=== PATIENT | female | born 1980 | race Caucasian/White ===

== ENCOUNTER 2021-12-27 08:13 | Emergency (ER) | payer OTHER, SELFPAY ==
[2021-12-27 08:21] VITALS: BP 115/76; PULSE 86; RESP 20; TEMP 37.1; O2SAT 100
--- NOTE | 2021-12-27 08:25 | ED.SKABFB ---
HPI - Skin/Abscess/Foreign Bdy General Chief complaint: Extremity Injury, Upper Stated complaint: left 1st digit finger Time Seen by Provider: 12/27/21 08:25 Source: patient and RN notes reviewed Mode of arrival: ambulatory Limitations: no limitations History of Present Illness HPI narrative: 41-year-old female presents to the [facility] with left second distal finger infection. Redness swelling and pus pocket noted. Patient has not recently got her nails done, is not a nail biter. Patient states approximately 4- 5 days ago she was doing the dishes and thinks that she might of gotten poked in that area, since has developed infection to the area. No treatment prior to arrival. MD complaint: abscess/boil Related Data Home Medications Medication Instructions Recorded Confirmed norethindrone-e.estradiol-iron [Lo 1 tablet PO DAILY 12/27/21 12/27/21 Loestrin Fe] Allergies Allergy/AdvReac Type Severity Reaction Status Date / Time No Known Allergies Allergy Unverified 03/21/18 10:24 Review of Systems Review of Systems: All systems reviewed & are unremarkable except as noted in HPI and below Constitutional: Constitutional: Reports no additional constitutional complaints, Denies chills and Denies fever(s) Eyes: Eyes: Reports no additional eye complaints ENT: Reports system reviewed and no additional complaints, except as documented Cardiovascular: Cardiovascular: Reports no additional cardiovascular complaints, Denies chest pain and Denies dyspnea Respiratory: Respiratory: Reports no additional respiratory complaints, Denies cough and Denies dyspnea Gastrointestinal: Gastrointestinal: Reports no additional gastrointestinal complaints, Denies abdominal pain, Denies nausea and Denies vomiting Musculoskeletal: Musculoskeletal: Reports no additional musculoskeletal complaints Integumentary/Breasts: Skin/Breast: Reports as per HPI and Reports erythema (Distal second finger left hand) Neurologic: Reports system reviewed and no additional complaints, except as documented Psychiatric: Psychiatric: Reports no additional psychiatric complaints Allergic/Immunologic: Allergic/Immunologic: Reports no additional allergic/immunologic complaints PMF Past Medical History Medical History (Updated 12/27/21 @ 16:53 by Sirena Galindo APRN) No significant medical problems Surgical History Surgical History (Updated 12/27/21 @ 16:53 by Sirena Galindo APRN) No history of previous surgery Social History Social History (Updated 12/27/21 @ 16:54 by Sirena Galindo APRN) Living arrangements: with family Gender identity (if verbalized by the patient): Female Comments At the time of my signature, I reviewed and agree with the nursing past medical, surgical, social, and family history. There is no relevant family history pertinent to the patient complaint. Exam Const: General: cooperative, healthy appearing, no acute distress, well developed, alert and awake Nutritional Appearance: well nourished Orientation/consciousness: patient oriented x3 Limitations: no limitations HENMT: Head: normal to inspection and No palpable skull fracture present Ears: hearing grossly normal bilaterally, external ears normal, TM's normal bilaterally and EAC's normal Eyes: Pupils: Equal, round and reactive pupils present Neck: Neck: normal visual inspection, no lymphadenopathy and no meningeal signs Chest: Chest palpation & inspection: normal inspection of the chest Resp: Effort & Inspection: normal respiratory effort and no use of accessory muscles Auscultation: clear to auscultation bilaterally, no crackles, no rales, no rhonchi and no wheezes Cardio: Rate: regular rate Rhythm: regular rhythm Skin: Wounds: wounds noted Other: Abscess right in the nailbed second left finger Neuro: General: patient oriented x3, gait normal, moves all extremities, no meningeal signs and no focal motor deficits Cranial nerves: Yes Equal, round and
== END 2021-12-27 08:42 | disposition home or self-care (01) ==
PROVIDERS: Emergency Provider Nurse Practitioner
DX: L03.012 Cellulitis of left finger (principal); Z85.820 Personal history of malignant melanoma of skin
CPT/HCPCS: 10060; 87070; 87147; 87181; 87186; 87205; 99203; G0463

== ENCOUNTER 2022-02-24 11:29 | Emergency (ER) | payer OTHER, SELFPAY ==
--- NOTE | 2022-02-24 11:33 | ED.URI ---
HPI - URI/Sore Throat General Chief Complaint: Upper Respiratory Infection Stated Complaint: sore throat cough congestion Time Seen by Provider: 02/24/22 11:33 Source: patient and RN notes reviewed History of Present Illness HPI Narrative: Patient is a 41-year-old female who presents the urgent care with request for a rapid COVID test and strep test. Patient states that she has had a sore throat, cough and light congestion since Thursday afternoon. Patient denies of any exposures to strep or COVID. States that no one else in the home has been ill. Patient denies of any fevers, nausea or vomiting. Patient has been taking DayQuil with mild improvement. No obvious fatigue noted. No other acute complaints. Patient aware plan of care. Some parts of this dictation were generated by voice recognition software and may contain typographical and/or grammatical inaccuracies. Related Data Home Medications Medication Instructions Recorded Confirmed norethindrone-e.estradiol-iron [Lo 1 tablet PO DAILY 12/27/21 12/27/21 Loestrin Fe] Allergies Allergy/AdvReac Type Severity Reaction Status Date / Time No Known Allergies Allergy Verified 02/24/22 11:41 Review of Systems Review of Systems: CONSTITUTIONAL: Denies fever, chills, or sweats. EYES: Denies visual changes, redness, or discharge. ENT: Reports of sore throat, sinus congestion CARDIOVASCULAR: Denies chest pain, palpitations, or edema. RESPIRATORY: Reports a mild cough without dyspnea GASTROINTESTINAL: Denies abdominal pain, nausea, vomiting, or diarrhea. GENITOURINARY: Denies dysuria or hematuria. SKIN: Denies rash or itching. MUSCULOSKELETAL: Denies back pain, joint pain, or myalgia. NEUROLOGIC: Denies headache, numbness, or weakness. All other systems reviewed are negative, except as documented in HPI. [facility] Past Medical History Medical History (Updated 02/24/22 @ 12:06 by EARL Carolina) No significant medical problems Surgical History Surgical History (Updated 12/27/21 @ 16:53 by Sirena Galindo APRN) No history of previous surgery Social History Social History (Updated 12/27/21 @ 16:54 by Sirena Galindo APRN) Gender identity (if verbalized by the patient): Female Comments At the time of my signature, I reviewed and agree with the nursing past medical, surgical, social, and family history. There is no relevant family history pertinent to the patient complaint. Exam Narrative: GENERAL: This is a well-nourished, well-developed patient, in no apparent distress. HEAD: normocephalic, atraumatic. EYES: PERRL. Sclera clear/white. Vision is grossly intact. EARS: External ears normal, auditory canals clear and without drainage, TMs normal without perforation. Hearing grossly intact. NOSE: External nose normal with no obvious nasal discharge, nares without redness, clear rhinorrhea. THROAT: Mucous membranes moist, posterior pharynx clear. Mild postnasal drainage without exudate or ulceration NECK: Neck supple, non-tender without lymphadenopathy CARDIOVASCULAR: Regular rate and rhythm without murmurs, gallops, or rubs. RESPIRATORY: Clear to auscultation. Breath sounds equal bilaterally. No wheezes, rales, or rhonchi. SKIN: warm, intact with no suspicious lesions or rash, good texture and turgor. NEURO: awake, alert, and oriented to person, place and time. There were no obvious focal neurologic abnormalities. EXTREMITIES: No clubbing, cyanosis, or edema. Course Course Level of Care: Express Care Visit Vital Signs Vital signs: Vital Signs Temperature 98.6 F 02/24/22 11:38 Pulse Rate 99 02/24/22 11:38 Respiratory Rate 14 02/24/22 11:38 Blood Pressure 122/80 02/24/22 11:38 Pulse Oximetry 98 02/24/22 11:38 Temperature 98.6 F 02/24/22 11:38 Pulse Rate 99 02/24/22 11:38 Respiratory Rate 14 02/24/22 11:38 Blood Pressure 122/80 02/24/22 11:38 Pulse Oximetry 98 02/24/22 11:38 Reviewed MDM - URI/Sore Throat
[2022-02-24 11:38] VITALS: BP 122/80; PULSE 99; RESP 14; TEMP 37; O2SAT 98
[2022-02-24 20:49] LABS: SARS-CoV-2 RNA PCR Negative
== END 2022-02-24 12:15 | disposition home or self-care (01) ==
PROVIDERS: Emergency Provider Nurse Practitioner Family; PCP Internal Medicine
DX: J06.9 Acute upper respiratory infection, unspecified (principal); Z20.822 Contact with and (suspected) exposure to COVID-19
CPT/HCPCS: 87081; 87880; 99213; C9803; G0463; U0003; U0005

== ENCOUNTER 2022-03-27 10:50 | Emergency (ER) | payer OTHER, SELFPAY ==
[2022-03-27 10:57] VITALS: BP 108/77; PULSE 82; RESP 18; TEMP 37.2; O2SAT 100
--- NOTE | 2022-03-27 11:10 | ED.URI ---
HPI - URI/Sore Throat General Chief Complaint: Upper Respiratory Infection Stated Complaint: infection in nose Time Seen by Provider: 03/27/22 11:00 Source: patient Mode of arrival: ambulatory Limitations: no limitations History of Present Illness HPI Narrative: Ms. Nj is a 41-year-old female patient presenting to the clinic today with complaints of a sore possibly infected in her left nare. She reports that its been sore for approximately 1 week. She denies any fever or chills. MD elicited complaint: sore throat and nasal congestion Related Data Home Medications Medication Instructions Recorded Confirmed norethindrone 1 mg-ethinyl 1 tablet PO DAILY 12/27/21 03/27/22 estradiol 10 mcg (24)-iron 10 mcg(2) tablet (Lo Loestrin Fe) Allergies Allergy/AdvReac Type Severity Reaction Status Date / Time No Known Allergies Allergy Verified 03/27/22 11:01 Review of Systems Review of Systems: Pertinent positives per HPI. Patient denies any fever, chills, rash, headache, visual changes, dizziness, cough, runny nose, sore throat, shortness of breath, chest pain, palpitations, nausea, vomiting, diarrhea, constipation, abdominal pain, or any urinary issues. PMFSH Past Medical History Medical History No significant medical problems Surgical History Surgical History No history of previous surgery Social History Social History Gender identity (if verbalized by the patient): Female Comments At the time of my signature, I reviewed and agree with the nursing past medical, surgical, social, and family history. There is no relevant family history pertinent to the patient complaint. Exam Narrative: General: Well-developed, well nourished, in no apparent distress Head: Normocephalic, atraumatic Eyes: Pupils equally round and reactive to light bilaterally, EOM intact, sclera and conjunctive clear, no discharge, lids normal Ears: TMs intact and clear, ear canals clear, no drainage, grossly hearing normal. Nose: Nares patent, no discharge, has a small sore to the anterior nare at 6:00 that has a green scab on it with mild redness surrounding this area. Painful to palpation of this area, no other inflammation, no sinus tenderness. Mouth: Oropharynx without lesions or masses, good dentition, MMM. Neck: Supple, trachea midline, no enlargement of anterior or posterior cervical nodes, no thyroid masses or goiter palpable. Cardio: Regular rate and rhythm, s1 and s2 normal, no murmur appreciated. Resp: Clear to auscultation bilaterally anteriorly and posteriorly, no rhonchi, rales, wheezing or rubs Course Course Emergency Course: Portions of this record may have been created with voice recognition software. Level of Care: Express Care Visit Vital Signs Vital signs: Vital Signs Temperature 37.2 C 03/27/22 10:57 Pulse Rate 82 03/27/22 10:57 Respiratory Rate 18 03/27/22 10:57 Blood Pressure 108/77 03/27/22 10:57 Pulse Oximetry 100 03/27/22 10:57 Oxygen Delivery Room Air 03/27/22 10:57 Temperature 37.2 C 03/27/22 10:57 Pulse Rate 82 03/27/22 10:57 Respiratory Rate 18 03/27/22 10:57 Blood Pressure 108/77 03/27/22 10:57 Pulse Oximetry 100 03/27/22 10:57 Oxygen Delivery Room Air 03/27/22 10:57 Vital signs reviewed MDM - URI/Sore Throat MDM Narrative Medical decision making narrative: At the time of visit patient is resting comfortably on the exam table. She has a small sore to the left anterior nare at 6:00 it is green scabbed with tenderness to palpation with mild redness. I suspect that the patient has a superficial infection to this area and will send her prescription for some mupirocin cream to apply twice a day for 7 days. Patient voiced understanding of discharge instructions and agre
== END 2022-03-27 11:20 | disposition home or self-care (01) ==
PROVIDERS: Emergency Provider Nurse Practitioner Family; PCP Internal Medicine
DX: J34.89 Other specified disorders of nose and nasal sinuses (principal); Z86.16 Personal history of COVID-19; Z85.820 Personal history of malignant melanoma of skin
CPT/HCPCS: 99213; G0463